=== PATIENT | female | born 1935 | race Caucasian/White ===

== ENCOUNTER 2016-11-17 21:36 | Inpatient (IN) | payer MEDICAID, MEDICARE ==
[~2016-11-17] VITALS: Ht 160 cm; Wt 79.3 kg
[~2016-11-17 21:36] MED LIST: ALPR0.257 PO; AMLO10TA2 PO; ASPI-496 PO; CIPR500T3 PO; DIAZ2TAB3 PO; HYDR-3138 PO; HYDR-3240 PO; METO25TA35 PO; PARO10TA3 PO; WARF5TAB PO
[2016-11-17] MEDS ORDERED: SODIUM CHLORIDE FLUSH 10ML SYR IVF ONE (22:00)
[2016-11-17 22:27] LABS: HEMOGLOBIN 14.2 g/dL (11.7-16.4)
[2016-11-17 22:40] LABS: BLOOD UREA NITROGEN 16 mg/dL (7-18)
[2016-11-17 22:41] LABS: IS PT STATUS REG ER OR PRE ER? YES
[2016-11-17] MEDS ORDERED: BISACODYL 10 MG SUPP PR PRN (23:00)
[2016-11-17] MEDS ORDERED: NITROGLYCERIN 0.4 MG BOTTLE (25 TABS) SL PRN (23:00)
[2016-11-17] MEDS ORDERED: POLYETHYLENE GLYCOL 17 GM PACKET PO PRN (23:00)
[2016-11-17] MEDS ORDERED: ASPIRIN 81 MG TABLET EC PO SCH (23:00)
[2016-11-17] MEDS ORDERED: MORPHINE SULFATE 4 MG/ML, 1ML IVPush PRN (23:00)
[2016-11-17] MEDS ORDERED: ONDANSETRON 2MG/ML, 2ML IVP PRN (23:00)
[2016-11-18 00:08] VITALS: BP 130/76
[2016-11-18] MEDS: METOPROLOL TARTRATE 25 MG TABLET PO SCH ×2 (00:24→08:58)
[2016-11-18] MEDS: HEPARIN 5,000 UNITS/ML, 1ML SQ SCH ×3 (00:24→17:00)
[2016-11-18] MEDS: ACETAMINOPHEN 325 MG TABLET PO PRN ×2 (00:24→13:50)
[2016-11-18] MEDS: SODIUM CHLORIDE FLUSH 10ML SYR IVF SCH ×2 (00:25→08:58)
[2016-11-18 01:27] VITALS: BP 118/71
[2016-11-18 06:37] LABS: ASPARTATE AMINO TRANSFERASE 15 U/L (15-37); BLOOD UREA NITROGEN 17 mg/dL (7-18)
[2016-11-18 06:44] LABS: IS PT STATUS REG ER OR PRE ER? NO
[2016-11-18 07:46] VITALS: BP 126/75
[2016-11-18] MEDS ORDERED: REGADENOSON 0.4 MG/5 ML SYRINGE ONE (08:05)
[2016-11-18] MEDS ORDERED: SENNA/DOCUSATE TABLET PO SCH (09:00)
[2016-11-18] MEDS ORDERED: AMLODIPINE 5 MG TABLET PO SCH (09:00)
[2016-11-18 16:08] VITALS: BP 144/72
[2016-11-18] MEDS ORDERED: CARV12.52 PO ×2 (17:18→17:23)
== END 2016-11-18 18:40 | disposition home or self-care (01) | DRG 392 ==
LOC: ED 21:58 → EDIP 21:59 → ED 22:47 → 5SO 23:40
PROVIDERS: ADMIT Internal Medicine; ATTEND Internal Medicine
DX: K21.9 Gastro-esophageal reflux disease without esophagitis (principal); D68.69 Other thrombophilia; I50.32 Chronic diastolic (congestive) heart failure; I13.10 Hypertensive heart and chronic kidney disease without heart failure, with stage 1 through stage 4 chronic kidney disease, or unspecified chronic kidney disease; N18.3 Chronic kidney disease, stage 3 (moderate); E78.5 Hyperlipidemia, unspecified; Z96.651 Presence of right artificial knee joint; I48.2 Chronic atrial fibrillation; Z79.01 Long term (current) use of anticoagulants; Z79.82 Long term (current) use of aspirin; Z82.49 Family history of ischemic heart disease and other diseases of the circulatory system; Z95.0 Presence of cardiac pacemaker; Z87.440 Personal history of urinary (tract) infections; Z88.8 Allergy status to other drugs, medicaments and biological substances; Z98.49 Cataract extraction status, unspecified eye
CPT/HCPCS: 36415; 71010; 78452; 80048; 80053; 80061; 82040; 83735; 84439; 84443; 84484; 85025; 93005; 93017; 93306; J1644; J2405; J2785; A9502; C9898

== ENCOUNTER 2017-06-08 08:49 | Day surgery (SDC) | payer MEDICARE, OTHER ==
[~2017-06-08] VITALS: Ht 157.5 cm; Wt 81.8 kg
[~2017-06-08 08:49] MED LIST changes: +CARV12.52 PO; -HYDR-3138 PO; +HYDR-3237 PO
[2017-06-08] MEDS ORDERED: SODIUM CHLORIDE 0.9% 1,000 ML IV SCH (09:24)
[2017-06-08 09:26] VITALS: BP 165/93
[2017-06-08] MEDS ORDERED: PLEASE ENTER HEIGHT AND WEIGHT MC SCH (09:30)
[2017-06-08] MEDS ORDERED: CEFAZOLIN PMX 1GM/50ML 50 ML IVPB ONE (09:30)
[2017-06-08] MEDS ORDERED: TOLT2TAB4 PO (09:38)
[2017-06-08] MEDS ORDERED: FAMO40TA61 PO (09:38)
[2017-06-08] MEDS ORDERED: CARV12.52 PO (09:38)
[2017-06-08 09:59] VITALS: BP 165/93
[2017-06-08] MEDS ORDERED: MIDAZOLAM 1 MG/ML, 5ML ONE ×2 (11:10)
[2017-06-08] MEDS ORDERED: LIDOCAINE 2%, 20ML ONE (11:10)
[2017-06-08] MEDS ORDERED: CEFAZOLIN PMX 1GM/50ML 50 ML ONE (11:10)
[2017-06-08] MEDS ORDERED: CEFAZOLIN 1,000 MG ONE (11:10)
[2017-06-08] MEDS ORDERED: DIPHENHYDRAMINE 50 MG/ML, 1ML ONE (11:40)
[2017-06-08] MEDS ORDERED: ACETAMINOPHEN 325 MG TABLET PO PRN (12:30)
[2017-06-08] MEDS ORDERED: ONDANSETRON 2MG/ML, 2ML IV PRN (12:30)
[2017-06-08] MEDS ORDERED: TEMPLATE NON-FORMULARY MED. (Alprazolam** 0.5 MG) PO PRN (12:30)
[2017-06-08] MEDS ORDERED: HYDROcodone/APAP 5/325 TABLET PO PRN (12:30)
[2017-06-08] MEDS ORDERED: CARVEDILOL 12.5 MG TABLET PO SCH (21:00)
[2017-06-08] MEDS ORDERED: TEMPLATE NON-FORMULARY MED. (Amlodipine Besylate (Amlodipine Besylate**) 5 MG) PO SCH (21:00)
[2017-06-08] MEDS ORDERED: ASPIRIN 81 MG TABLET EC PO SCH (21:00)
[2017-06-08] MEDS ORDERED: SODIUM CHLORIDE FLUSH 10ML SYR IVF SCH (21:00)
[2017-06-09] MEDS ORDERED: FAMOTIDINE 40 MG TABLET PO SCH (09:00)
[2017-06-09] MEDS ORDERED: TOLTERODINE TARTRATE 2 MG PO SCH (09:00)
== END 2017-06-08 13:40 ==
LOC: CACL 08:49
PROVIDERS: ATTEND Internal Medicine Cardiovascular Disease
DX: Z45.018 Encounter for adjustment and management of other part of cardiac pacemaker (principal); I10 Essential (primary) hypertension; E78.5 Hyperlipidemia, unspecified; I44.2 Atrioventricular block, complete; I48.0 Paroxysmal atrial fibrillation; N28.9 Disorder of kidney and ureter, unspecified; Z95.0 Presence of cardiac pacemaker; Z79.82 Long term (current) use of aspirin
CPT/HCPCS: 33228; 99156; 99157; C1785; J0690; J1200; J2250; J3490